=== PATIENT | female | born 1940 | race Caucasian/White ===

== ENCOUNTER 2017-05-11 13:16 | Emergency (ER) | payer MEDICARE ==
[~2017-05-11] VITALS: Ht 170.2 cm; Wt 86.2 kg
[~2017-05-11 13:16] MED LIST: HYDR-3714 PO; IBP800T PO; LISI20TA PO; TRM50T PO
[2017-05-11] MEDS ORDERED: LOSA100T28 (13:28)
[2017-05-11] MEDS ORDERED: ASPI-586 PO (13:28)
[2017-05-11] MEDS ORDERED: LIDOCAINE 1% INJ 20 ML (XYLOCAINE) VIAL INJ ONE (13:30)
[2017-05-11 13:44] LABS: BASOPHILS % (AUTO) 0 % (0-10); EOSINOPHILS # (AUTO) 0.2 10^3/uL (0.0-0.3); EOSINOPHILS % (AUTO) 3 % (0-10); LYMPHOCYTES # (AUTO) 1.4 X 10^3 (1.0-4.0); LYMPHOCYTES % (AUTO) 19 % (12-44); MEAN CORPUSCULAR HEMOGLOBIN 30 PG (25-34); MEAN CORPUSCULAR HGB CONC 33 G/DL (32-36); MEAN CORPUSCULAR VOLUME 91 FL (80-99); MEAN PLATELET VOLUME 10.3 FL (7.4-10.4); MONOCYTES # (AUTO) 0.8 X 10^3 (0.0-1.0); MONOCYTES % (AUTO) 11 % (0-12); NEUTROPHILS # (AUTO) 4.9 X 10^3 (1.8-7.8); NEUTROPHILS % (AUTO) 67 % (42-75); PLATELET COUNT 216 10^3/uL (130-400); RED BLOOD COUNT 4.74 10^6/uL (4.35-5.85); RED CELL DISTRIBUTION WIDTH 12.8 % (10.0-14.5); WHITE BLOOD COUNT 7.3 10^3/uL (4.3-11.0)
[2017-05-11] MEDS ORDERED: ONDANSETRON 4 MG/2 ML (SDV) Z0FRAN ONE (13:45)
[2017-05-11] MEDS ORDERED: ONDANSETRON 4 MG/2 ML (SDV) Z0FRAN IVP ONE (14:00)
[2017-05-11 14:01] LABS: ANION GAP 9 MMOL/L (5-14); BLOOD UREA NITROGEN 19 MG/DL (7-18); BUN/CREATININE RATIO 25 (0-20); CALCIUM 9.6 MG/DL (8.5-10.1); CARBON DIOXIDE 26 MMOL/L (21-32); CHLORIDE 106 MMOL/L (98-107); CREATININE SERUM 0.76 MG/DL (0.60-1.30); GFR ESTIMATED > 60; GLUCOSE 123 MG/DL (70-105); SODIUM 141 MMOL/L (135-145)
--- NOTE | 2017-05-11 14:32 | Diagnostic Imaging Report ---
PROCEDURE: CT head, face, and cervical spine without contrast. TECHNIQUE: Multiple contiguous axial images were obtained through the head, neck, and facial bones without the use of intravenous contrast. Sagittal and coronal reformations through the cervical spine and facial bones were also performed. INDICATION: Fall. FINDINGS: CT head: There is no intracranial hemorrhage, edema, or mass effect. There are periventricular and deep white matter hypodensities compatible with chronic microvascular ischemic changes. No hydrocephalus. No extra-axial fluid collection is seen. There is a mild scalp contusion in the frontal region in the midline. The calvarium appears unremarkable. CT face: There is mucosal thickening along the inferior aspect of the right maxillary sinus. The paranasal sinuses otherwise are clear with no hemorrhage or other forms of obliteration. The mastoid air cells and middle ear cavities are also well aerated. The orbital vernon are intact. The globes and retrobulbar soft tissues are symmetric. The zygomatic arches are intact. No fracture is seen. CT cervical spine: There is reversal of the lordotic curvature. The alignment of the posterior spinal line demonstrates minimal anterior translation of C3 over C4 and mild posterior translation of C5 over C6. There is also mild anterior translation of C7 over T1. This appears to be degenerative related to the associated significant disc degenerative changes with severe disc height loss at C4/5, C5/6, and C6/7 levels. At C6/7 anteriorly, there is osseous fusion seen. The facet joints demonstrate degenerative changes with satisfactory alignment. No widening of the predental space. Alignment of the lateral masses of C1 and C2 and the atlanto-occipital joints is satisfactory. There are posterior osteophytes seen at C4/5, C5/6, and C6/7 levels. No osseous significant spinal canal stenosis. There is multilevel foraminal narrowing seen, severe on the right side at C3/4 and at C5/6, and severe on the left at C2/3, C3/4, C5/6 (markedly severe), and C6/7 levels. No fracture is seen. IMPRESSION: CT head: No intracranial hemorrhage. CT maxillofacial: No fracture seen. CT cervical spine: Advanced degenerative changes with multilevel severe foraminal stenosis. No fracture seen. Dictated by: Dictated on workstation # [id number]
[2017-05-11 15:48] LABS: BILIRUBIN,URINE NEGATIVE (NEGATIVE); KETONES,URINE NEGATIVE (NEGATIVE); LEUKOCYTE ESTERASE ,URINE 1+ (NEGATIVE); NITRITE,URINE POSITIVE (NEGATIVE); PH,URINE 7 (5-9); PROTEIN,URINE 2+ (NEGATIVE); UROBILINOGEN,URINE NORMAL (NORMAL)
[2017-05-11 15:56] LABS: SQUAMOUS EPITHELIAL CELL,UR 0-2 /HPF
[2017-05-11] MEDS ORDERED: TETANUS,DIPTH,PERTUSS P/F (BOOSTRIX) 0.5 ML VIAL IM ONE (16:00)
--- NOTE | 2017-05-11 16:15 | ED Fall/Injury ---
General Chief Complaint: Trauma-Non Activation Stated Complaint: LAC BETWEEN EYES/FALL IN BR Nursing Triage Note: patient [place] the [place] at 1245. patient doesn't know cause of fall. denies LOC, neck pain. laceration noted to forehead. c-collar on per EMS Source: patient Exam Limitations: no limitations History of Present Illness Time seen by provider: 13:20 Initial Comments This delightful 76-year-old woman presents to the emergency room via EMS after having a fall at the bank. She was rushing to the restroom when she fell for unknown reasons. She denies any prodrome. She does not recall tripping or stumbling. She was feeling well prior to the fall. She struck her head on the toilet and actually broke the porcelain toilet tank. She is a large laceration between her eyes. There was no loss of consciousness. Patient is dazed and nauseated but alert and oriented. She denies any other injury. Allergies and Home Medications Allergies Coded Allergies: Codeine (Unverified Allergy, 03/17/11) Hydrocodone (Unverified Adverse Reaction, Severe, NAUSEA, 04/06/11) tramadol HCl (Unverified Adverse Reaction, Severe, NAUSEA, 04/06/11) Home Medications Aspirin 81 Mg Tablet.dr, 81 MG PO, (Reported) Cephalexin 500 Mg Capsule, 500 MG PO QID, #28 Prescribed by: YOHANA SOLIS on 05/11/17 1617 Losartan Potassium 100 Mg Tablet, #30 (Reported) Constitutional: no symptoms reported Eyes: No Symptoms Reported Ears, Nose, Mouth, Throat: see HPI Respiratory: no symptoms reported Cardiovascular: no symptoms reported Gastrointestinal: see HPI Genitourinary: no symptoms reported : No Musculoskeletal: see HPI Skin: see HPI Psychiatric/Neurological: See HPI Past Pcrgvwv-[id number]-Hjpxkc Hx Patient Social History Alcohol Use: Denies Use Recreational Drug Use: No Smoking Status: Never a Smoker Recent Foreign Travel: No Contact w/Someone Who Travel: No Recent Infectious Disease Expo: No Recent Hopitalizations: No Surgeries HX Surgeries: Yes Surgeries: Orthopedic Respiratory Hx Respiratory Disorders: No Cardiovascular Hx Cardiac Disorders: Yes (cardiomegaly) Cardiac Disorders: Hypertension Neurological Hx Neurological Disorders: Yes (Gagnon's palsy) Reproductive System Hx Reproductive Disorders: No Sexually Transmitted Disease: No Genitourinary Hx Genitourinary Disorders: No Gastrointestinal Hx Gastrointestinal Disorders: No Musculoskeletal Hx Musculoskeletal Disorders: Yes (RIGHT SHOULDER) Endocrine Hx Endocrine Disorders: No HEENT HX ENT Disorders: No Cancer Hx Cancer: No Psychosocial Hx Psychiatric Problems: No Integumentary HX Skin/Integumentary Disorder: No Blood Transfusions Hx Blood Disorders: No Physical Exam Vital Signs Vital Sign - Last 12Hours 05/11/17 13:26 Temp 98.4 Pulse 86 Resp 18 B/P (MAP) 176/107 Pulse Ox 95 Capillary Refill : Less Than 3 Seconds General Appearance: WD/WN, no apparent distress HEENT: PERRL/EOMI, other (large 3.5 cm laceration between the brows that is gaping) Neck: non-tender, supple, normal inspection, other (in c-collar) Cardiovascular: regular rate, rhythm, no edema, no murmur Respiratory: lungs clear, normal breath sounds, no respiratory distress, no accessory muscle use Gastrointestinal: normal bowel sounds, non tender, soft Extremities: no pedal edema, other (minor ecchymosis and tenderness to the third and fourth right fingers) 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, no motor/sensory deficits, alert, normal mood/affect, oriented x 3 Skin: normal color, warm/dry [place] Coma Score Best Eye Response: (4) Open Spontaneously Best Verbal Response: (5) Oriented Best Motor Response: (6) Obeys Commands [place] Total: 15 Laceration Repair : Wound Location: Face Wound Length (cm): 3.5 Wound's Depth, Shape: linear, sub Q Wound Explored: clean Irrigated w/ Saline (ccs): 150 Betadine Prep?: Yes Anesthesia: 1% Lidocaine Volume Anesthetic (ccs): 6 Suture: Prolene Suture Size: 5-0 Number of Sutures: 6 Sterile Dressing Applied?: No Progress/Results/Core Measures Results/Orders Lab Results Laboratory Tests Test 05/11/17 13:35 05/11/17 15:42 Range/Units White Blood Count 7.3 4.3-11.0 10^3/uL Red Blood Count 4.74 4.35-5.85 10^6/uL Hemoglobin 14.2 11.5-16.0 G/DL Hematocrit 43 35-52 % Mean Corpuscular Volume 91 80-99 FL Mean Corpuscular Hemoglobin 30 25-34 PG Mean Corpuscular Hemoglobin Concent 33 32-36 G/DL Red Cell Distribution Width 12.8 10.0-14.5 % Platelet Count 216 130-400 10^3/uL Mean Platelet Volume 10.3 7.4-10.4 FL Neutrophils (%) (Auto) 67 42-75 % Lymphocytes (%) (Auto) 19 12-44 % Monocytes (%) (Auto) 11 0-12 % Eosinophils (%) (Auto) 3 0-10 % Basophils (%) (Auto) 0 0-10 % Neutrophils # (Auto) 4.9 1.8-7.8 X 10^3 Lymphocytes # (Auto) 1.4 1.0-4.0 X 10^3 Monocytes # (Auto) 0.8 0.0-1.0 X 10^3 Eosinophils # (Auto) 0.2 0.0-0.3 10^3/uL Basophils # (Auto) 0.0 0.0-0.1 10^3/uL Sodium Level 141 135-145 MMOL/L Potassium Level 4.0 3.6-5.0 MMOL/L Chloride Level 106 98-107 MMOL/L Carbon Dioxide Level 26 21-32 MMOL/L Anion Gap 9 5-14 MMOL/L Blood Urea Nitrogen 19 H 7-18 MG/DL Creatinine 0.76 0.60-1.30 MG/DL Estimat Glomerular Filtration Rate > 60 BUN/Creatinine Ratio 25 H 0-20 Glucose Level 123 H 70-105 MG/DL Calcium Level 9.6 8.5-10.1 MG/DL Magnesium Level 2.0 1.8-2.4 MG/DL Urine Color YELLOW Urine Clarity CLEAR Urine pH 7 5-9 Urine Specific [place] 1.020 1.016-1.022 Urine Protein 2+ H NEGATIVE Urine Glucose (UA) NEGATIVE NEGATIVE Urine Ketones NEGATIVE NEGATIVE Urine Nitrite POSITIVE H NEGATIVE Urine Bilirubin NEGATIVE NEGATIVE Urine Urobilinogen NORMAL NORMAL MG/DL Urine Leukocyte Esterase 1+ H NEGATIVE Urine RBC (Auto) 2+ H NEGATIVE Urine RBC 2-5 H /HPF Urine WBC 2-5 /HPF Urine Squamous Epithelial Cells 0-2 /HPF Urine Crystals NONE /LPF Urine Bacteria LARGE H /HPF Urine Casts NONE /LPF Urine Mucus NEGATIVE /LPF Urine Culture Indicated YES Micro Results Microbiology 05/11/17 Urine Culture - Preliminary, Resulted Escherichia Coli My Orders Orders - YOHANA SCHMITZ MD Ct Head/Face/Cervical Wo (05/11/17 13:29) Saline Lock/Iv-Start (05/11/17 13:29) Saline Lock/Iv-Start (05/11/17 13:29) Ekg Tracing (05/11/17 13:29) Monitor-Rhythm Ecg Trace Only (05/11/17 13:29) Basic Metabolic Panel (05/11/17 13:29) Cbc With Automated Diff (05/11/17 13:29) Magnesium (05/11/17 13:29) Ua Culture If Indicated (05/11/17 13:29) Lidocaine 1% Injection (Xylocaine 1% Inj (05/11/17 13:30) Ondansetron Injection (Zofran Injectio (05/11/17 14:00) Ondansetron Injection (Zofran Injectio (05/11/17 13:45) Dipht,Pertuss(Acell),Tet Adult (Boostrix (05/11/17 16:00) Urine Culture (05/11/17 15:42) Medications Given in ED Vital Signs/I&O Vital Sign - Last 12Hours 05/11/17 05/11/17 13:26 16:29 Temp 98.4 Pulse 86 92 Resp 18 18 B/P (MAP) 176/107 Pulse Ox 95 95 Blood Pressure Mean: 130 Progress Note : Progress Note Patient did vomit once while in the CT scan. Zofran was administered. She was presumed to have concussion. No acute injuries were identified on imaging. The facial laceration was repaired with suture. Patient was found to have urinary tract infection. She was prescribed antibiotics and ultimately discharged to home. ECG Initial ECG Impression Date: May 11, 2017 Initial ECG Impression Time: 14:13 Initial ECG Rate: 90 Initial ECG Rhythm: Normal Sinus Comment Normal sinus rhythm with no ST elevation or depression. Probable LVH. No abnormal intervals. Diagnostic Imaging Diagonstic Imaging: CT Plain Films/CT/US/NM/MRI: facial bones, c-spine, head Comments NAME: DERRELL HANSEN MED REC#: [id number] PT STATUS: REG ER : 1940 PHYSICIAN: YOHANA SCHMITZ MD ADMIT DATE: 05/11/17/ER Draft Date of Exam:05/11/17 CT HEAD/FACE/CERVICAL WO PROCEDURE: CT head, face, and cervical spine without contrast. TECHNIQUE: Multiple contiguous axial images were obtained through the head, neck, and facial bones without the use of intravenous contrast. Sagittal and coronal reformations through the cervical spine and facial bones were also performed. INDICATION: Fall. FINDINGS: CT head: There is no intracranial hemorrhage, edema, or mass effect. There are periventricular and deep white matter hypodensities compatible with chronic microvascular ischemic changes. No hydrocephalus. No extra-axial fluid collection is seen. There is a mild scalp contusion in the frontal region in the midline. The calvarium appears unremarkable. CT face: There is mucosal thickening along the inferior aspect of the right maxillary sinus. The paranasal sinuses otherwise are clear with no hemorrhage or other forms of obliteration. The mastoid air cells and middle ear cavities are also well aerated. The orbital vernon are intact. The globes and retrobulbar soft tissues are symmetric. The zygomatic arches are intact. No fracture is seen. CT cervical spine: There is reversal of the lordotic curvature. The alignment of the posterior spinal line demonstrates minimal anterior translation of C3 over C4 and mild posterior translation of C5 over C6. There is also mild anterior translation of C7 over T1. This appears to be degenerative related to the associated significant disc degenerative changes with severe disc height loss at C4/5, C5/6, and C6/7 levels. At C6/7 anteriorly, there is osseous fusion seen. The facet joints demonstrate degenerative changes with satisfactory alignment. No widening of the predental space. Alignment of the lateral masses of C1 and C2 and the atlanto-occipital joints is satisfactory. There are posterior osteophytes seen at C4/5, C5/6, and C6/7 levels. No osseous significant spinal canal stenosis. There is multilevel foraminal narrowing seen, severe on the right side at C3/4 and at C5/6, and severe on the left at C2/3, C3/4, C5/6 (markedly severe), and C6/7 levels. No fracture is seen. IMPRESSION: CT head: No intracranial hemorrhage. CT maxillofacial: No fracture seen. CT cervical spine: Advanced degenerative changes with multilevel severe foraminal stenosis. No fracture seen. Dictated on workstation # [id number] Dict: 05/11/17 1416 Trans: 05/11/17 1432 [id number] Interpreted by: BOB MORALES MD Departure Impression Impression: Primary Impression: Facial laceration Qualified Codes: S01.81XA - Laceration without foreign body of other part of head, initial encounter Additional Impressions: Concussion without loss of consciousness Qualified Codes: S06.0X0A - Concussion without loss of consciousness, initial encounter Nausea and vomiting Qualified Codes: R11.2 - Nausea with vomiting, unspecified Urinary tract infection Qualified Codes: N39.0 - Urinary tract infection, site not specified Fall on same level Qualified Codes: W18.30XA - Fall on same level, unspecified, initial encounter Disposition: HOME, SELF-CARE Condition: Improved Departure-Patient Inst. Decision time for Depature: 16:00 Referrals: NO,LOCAL PHYSICIAN (PCP/Family) Primary Care Physician Patient Instructions: Concussion, Adult (DC), Laceration Repair With Stitches ( DC), Urinary Tract Infections in Adults Add. Discharge Instructions: Drink plenty of clear liquids. Complete your antibiotic as prescribed. Return to have your stitches removed in about 7 days. Watch your wound for signs of infection such as increasing redness, increasing swelling, puslike drainage, or fever. Return to care if you notice these symptoms. Follow-up with your primary care provider in a couple of days to review the results of your urine culture. This will ensure you are taking an antibiotic appropriate for the type of bladder infection you have. All discharge instructions reviewed with patient and/or family. Voiced understanding. Scripts Cephalexin (Keflex) 500 Mg Capsule 500 MG PO QID, #28 CAP Prov: YOHANA SCHMITZ MD 05/11/17 Copy Copies To 1: BELEN FAROOQ MD, JOSHUA T MD May 11, 2017 16:15
[2017-05-11] MEDS ORDERED: CEPH-507 PO (16:17)
[2017-05-11 16:29] VITALS: BP 174/102
== END 2017-05-11 16:28 | disposition home or self-care (01) ==
LOC: EDUNIT# 13:16 → ER 13:18
DX: S01.81XA Laceration without foreign body of other part of head, initial encounter (principal); S06.0X0A Concussion without loss of consciousness, initial encounter; N39.0 Urinary tract infection, site not specified; R11.2 Nausea with vomiting, unspecified; I10 Essential (primary) hypertension; Z79.82 Long term (current) use of aspirin; W01.198A Fall on same level from slipping, tripping and stumbling with subsequent striking against other object, initial encounter
CPT/HCPCS: 12013; 36415; 70450; 70486; 72125; 80048; 81000; 83735; 85025; 87088; 87186; 90715; 93005

== ENCOUNTER → 2017-06-07 | Outpatient (CLI) | payer MEDICARE, OTHER ==
[~2017-06-07] MED LIST changes: +ASPI-586 PO; +CEPH-507 PO; +LOSA100T28
== END ==
LOC: CARD 16:02
PROVIDERS: ATTEND Internal Medicine Cardiovascular Disease
DX: I07.1 Rheumatic tricuspid insufficiency; I51.7 Cardiomegaly; I34.0 Nonrheumatic mitral (valve) insufficiency; I10 Essential (primary) hypertension; R06.02 Shortness of breath
CPT/HCPCS: 93306

== ENCOUNTER → 2017-06-08 | Outpatient (CLI) | payer MEDICARE ==
[~2017-06-08] MED LIST changes: +REGADENOSON 0.4 MG/5 ML SYR (LEXISCAN) IV ONE
[2017-06-08] MEDS: CATHETER FLUSH 10 ML SYR IV PRN ×2 (07:42→08:45)
[2017-06-08 08:43] VITALS: BP 173/99
--- NOTE | 2017-06-09 10:26 | STRESS TEST ---
PROCEDURE PHYSICIAN: PRERNA ONTIVEROS DATE OF PROCEDURE: 06/08/2017 LEXISCAN MYOVIEW STRESS TEST REPORT: REFERRING PHYSICIAN: Dr. Cami Silver BASELINE HEART RATE: 83 BASELINE BLOOD PRESSURE: 173/100 BASELINE EKG: Sinus rhythm with no ischemic changes. IN SUMMARY: The patient was injected with 10.36 mCi of technetium 99 Myoview and the resting images were obtained. Then the patient received 0.4 mg of Lexiscan followed by 32.5 mCi of technetium 99 Myoview. Throughout the test, there were no EKG changes. The resting and stress images were reviewed and compared in the short axis, horizontal long axis, and vertical long axis views. Review of the images showed extracardiac attenuation with breast attenuation affecting the quality of the images. There is mild decreased uptake involving the mid to apical anterolateral and inferolateral wall. SSS is 10, SDS 6, TID value 0.76. On the gated images, the left ventricle appeared to be normal size with normal contractility. Calculated ejection fraction 61%. IN CONCLUSION: 1. Breast attenuation with questionable ischemia involving the mid to apical anterolateral and inferolateral wall. 2. Normal left ventricular size with normal contractility. Calculated ejection fraction 61%. 3. The patient tolerated Lexiscan well. Job ID: [id number] Dictated Date: 06/08/2017 15:09:52 Ruby Engineer Date: 06/09/2017 10:22:15 / gail
== END ==
LOC: CARD 07:29
PROVIDERS: ATTEND Internal Medicine Cardiovascular Disease
DX: I11.0 Hypertensive heart disease with heart failure (principal); R06.02 Shortness of breath; I51.7 Cardiomegaly
CPT/HCPCS: 78452; 93017

== ENCOUNTER 2017-07-07 08:01 | Day surgery (SDC) | payer MEDICARE, OTHER ==
[2017-07-07] VITALS (11 sets, daily range): BP systolic 153–184; BP diastolic 85–111
[~2017-07-07] VITALS: Ht 167.6 cm; Wt 86.2 kg
[~2017-07-07 08:01] MED LIST changes: -REGADENOSON 0.4 MG/5 ML SYR (LEXISCAN) IV ONE
[2017-07-07] MEDS ORDERED: NS IV 1000 ML 1,000 ML ONE (08:10)
[2017-07-07] MEDS ORDERED: HEParin (CATH LAB) 2,000 ML IV ONE (08:10)
[2017-07-07] MEDS ORDERED: NS IV 1000 ML 1,000 ML IV SCH ×3 (08:21→11:32)
[2017-07-07 08:51] LABS: MEAN PLATELET VOLUME 10.3 FL (7.4-10.4); RED BLOOD COUNT 5.03 10^6/uL (4.35-5.85); WHITE BLOOD COUNT 6.9 10^3/uL (4.3-11.0)
[2017-07-07 09:00] LABS: PROTHROMBIN TIME PATIENT 12.9 SEC (12.2-14.7)
[2017-07-07 09:10] LABS: ALANINE AMINOTRANSFERASE 23 U/L (0-55); ALBUMIN 4.1 GM/DL (3.2-4.5); ANION GAP 12 MMOL/L (5-14); ASPARTATE AMINO TRANSFERASE 21 U/L (5-34); BILIRUBIN,TOTAL 0.7 MG/DL (0.1-1.0); BLOOD UREA NITROGEN 17 MG/DL (7-18); BUN/CREATININE RATIO 21; CALCIUM 9.7 MG/DL (8.5-10.1); CARBON DIOXIDE 22 MMOL/L (21-32); CHLORIDE 105 MMOL/L (98-107); GFR ESTIMATED > 60; GLUCOSE 116 MG/DL (70-105); SODIUM 139 MMOL/L (135-145); TOTAL PROTEIN 7.1 GM/DL (6.4-8.2)
--- NOTE | 2017-07-07 09:27 | Diagnostic Imaging Report ---
Portable upright radiograph of the chest. INDICATION: Abnormal stress test. FINDINGS: There is a mild left basilar opacity favored to be atelectasis. The right lung is clear. The heart size is mildly enlarged. No effusion or pneumothorax. The mediastinum and maddi appear unremarkable. IMPRESSION: Cardiomegaly. Mild right basilar opacities favors to be atelectasis. Correlate clinically. Dictated by: Dictated on workstation # [id number]
[2017-07-07] MEDS ORDERED: MIDAZOLAM 5 MG/5 ML (VERSED) VIAL ONE (10:50)
[2017-07-07] MEDS ORDERED: fentaNYL INJECTION 100 MCG/2 ML AMP ONE (10:50)
--- NOTE | 2017-07-07 10:56 | Cardiac Procedure Note-CS/ASA ---
Pre-Procedure Note Pre-Op Procedure Note H&P Reviewed The H&P was reviewed, patient examined and no changes noted. Date H&P Reviewed: Jul 07, 2017 Time H&P Reviewed: 08:40 Conscious Sedation Pre-Proced Time Reviewed: 08:40 ASA Class: 3 Airway Mallampati Classification: ([place] appropriate class) I. II. III, IV Lungs Heart ASA score ASA 1: a normal healthy patient ASA 2: a patient with a mild systemic disease (mid diabetes, controlled hypertension, obesity x ASA 3: a patient with a severe systemic disease that limits activity (angina , COPD, prior Myocardial infarction) ASA 4: a patient with an incapacitating disease that is a constant threat to life (CHF, renal failure) ASA 5: a moribund patient not expected to survive 24 hrs. (ruptured aneurysm) ASA 6: a declared brain patient whose organs are being harvested. For emergent operations, add the letter E after the classification Grade 3 Sedation Plan: Analgesia, Amnesia, Plan communicated to team members, Discussed options with patient/fam, Discussed risks with patient/fam Note The patient is an appropriate candidate to undergo the planned procedure, sedation, and anesthesia. The patient immediately re-assessed prior to indication. PRERNA ONTIVEROS MD Jul 07, 2017 10:56
--- NOTE | 2017-07-07 11:36 | Cardiac Cath Report ---
Cardiac Cath Report Physician (s)/Music Professor (s) Physician PRERNA ONTIVEROS MD Pre-Procedure Diagnosis Pre-Procedure Diagnosis: coronary artery disease Post-Procedure Note Procedure Start Date: Jul 07, 2017 Procedure Start Time: 11:33 Name of Procedure: left heart catheterization Findings/Procedure Note PROCEDURE NOTE: After explaining the procedure to the patient, all pros and cons were explained, all questions were answered. The patient signed the consent and then she was placed on the cardiac catheterization laboratory. The patient was placed on the cardiac catheterization laboratory. Groin was prepped SL fashion local anesthesia was used. Sheath placed in the artery. Pratima right and left catheter were used to access the coronary system. Pigtail was used to access the left ventricular cavity, pressure was measured, no left ventricular gram was done At the end of the procedure the sheath was removed. Closure device was used Mynx. FINDINGS: Hemodynamics LV [ 158/13heart pressure of 13] Aorta [145/85 mean of 113 ] ANATOMY: Left Main [ normal] Left Anterior Descending [mild disease nonobstructive disease ] Left Circumflex [normal ] Right Coronory Artery [ normal] CONCLUSION: Mild coronary artery disease nonobstructive disease Normal left ventricular end-diastolic pressure DISCUSSION AND RECOMMENDATION: Patient has mild coronary artery disease nonobstructive disease, abnormal stress test is probably due to extracardiac attenuation Anesthesia Type: Conscious Sedation Estimated blood loss (mL): 25 ml Contrast Amount: 39 ml Total Radiation Dose: 53 mGy Post-Procedure Diagnosis Post-operative diagnosis: Coronary artery disease Chest pain nonspecific etiology Hypertension Hyperlipidemia PRERNA ONTIVEROS MD Jul 07, 2017 11:36
--- NOTE | 2017-07-07 11:37 | Discharge Inst-Post CATH ---
Discharge Inst-CATH Post Cardiac Cath D/C Inst Follow Up/Plan Appointment with Dr. Manuel's office in 2-4 weeks CARDIAC CATH DISCHARGE INSTRUCTIONS *Hold Metformin for 48 hours post heart cath. ACTIVITY * Go Home directly and rest. * Limit activity of the leg (or wrist if it was used) for 7 days including aerobics, swimming, jogging, bicycling, etc. * Restrict stair-climbing for 7 days if possible, if not, climb up with your non -cath leg, then bring together on the same step. * Avoid lifting, pushing, pulling or excessive movement of the affected extremity for 7 days. * Customary sexual activity may be resumed after 2 days-use caution not to use a position that strains or causes pain to the affected extremity. * No driving for 24 hours. * NO SMOKING. * Avoid straining for bowel movements for 7 days. * Gentle walking on level ground is allowed. * Returning to work will depend on the type of procedure and the results. Your doctor will discuss this with you. CALL YOUR DOCTOR FOR ANY OF THE FOLLOWING: *If bleeding from the puncture site occurs- Apply gentle pressure to site with clean cloth and call your doctor or EMS. * If a knot or lump forms under the skin, increases in size, or causes pain. * If bruising appears to be worsening or moving further down your leg instead of disappearing. * Temperature above 101 F. CARE OF YOUR GROIN INCISION; * Bruising or purple discoloration of the skin near the puncture site is common. * You may shower only, no bathtub bathing for 5 days. Be careful to avoid slipping as your leg may feel stiff. * If a closure device was used on your femoral artery, please see the attached guide regarding care of the device and your leg. * REMOVE the dressing from your groin the next day after your procedure in the shower. CARE OF YOUR WRIST INCISION; * Bruising or purple discoloration of the skin near the puncture site is common. * You may shower. * DO NOT submerge wrist. * Remove dressing in 24 hours. PRERNA MANUEL MD Jul 07, 2017 11:37
--- NOTE | 2017-07-07 11:39 | Clinic Account Progress/Dx ---
Clinic Account Progress/Dx DIAGNOSIS: Date Seen by Provider: Jul 07, 2017 Time Seen by Provider: 11:38 Diagnosis Coronary artery disease Chest pain nonspecific etiology Hypertension PRERNA ONTIVEROS MD Jul 07, 2017 11:39
[2017-07-07] MEDS ORDERED: PATIENT MAY USE OWN MEDS, ALL PO SCH (11:45)
== END 2017-07-07 16:20 | disposition home or self-care (01) ==
LOC: CATH 08:01 → SURG 11:56 → CATH 16:20
PROVIDERS: ATTEND Physician Assistant
DX: R79.89 Other specified abnormal findings of blood chemistry (principal); I25.10 Atherosclerotic heart disease of native coronary artery without angina pectoris; R06.02 Shortness of breath; I10 Essential (primary) hypertension; R94.39 Abnormal result of other cardiovascular function study; E78.5 Hyperlipidemia, unspecified; E66.9 Obesity, unspecified; Z68.30 Body mass index [BMI] 30.0-30.9, adult; Z79.899 Other long term (current) drug therapy
CPT/HCPCS: 36415; 71010; 80053; 85027; 85610; 85730; 87081; 93005; 93458

== ENCOUNTER → 2017-08-13 | Outpatient (CLI) | payer MEDICARE ==
[~2017-08-13] MED LIST changes: +RT-ALBUTEROL SULF 2.5 MG/3 ML PRE-MIX VIAL IH ONE
== END ==
LOC: RT 14:09
PROVIDERS: ATTEND Internal Medicine Cardiovascular Disease
DX: I10 Essential (primary) hypertension (principal); I34.0 Nonrheumatic mitral (valve) insufficiency; E66.9 Obesity, unspecified; R06.02 Shortness of breath
CPT/HCPCS: 94060; 94640; 94726; 94729

== ENCOUNTER 2020-01-15 00:29 | Emergency (ER) | payer MEDICARE ==
[~2020-01-15 00:29] MED LIST changes: -LOSA100T28; +LOSA100T57; -RT-ALBUTEROL SULF 2.5 MG/3 ML PRE-MIX VIAL IH ONE
[2020-01-15] MEDS ORDERED: LACTATED RINGERS 1,000 ML IV ONE ×2 (00:33→01:46)
[2020-01-15] MEDS ORDERED: PROMETHAZINE INJ 25 MG/ML (PHENERGAN) AMP IVP STA (00:33)
[2020-01-15 00:40] LABS: BASOPHILS % (AUTO) 0 % (0-10); EOSINOPHILS # (AUTO) 0.2 10^3/uL (0.0-0.3); EOSINOPHILS % (AUTO) 3 % (0-10); HEMATOCRIT 46 % (35-52); HEMOGLOBIN 14.9 G/DL (11.5-16.0); LYMPHOCYTES # (AUTO) 1.9 X 10^3 (1.0-4.0); LYMPHOCYTES % (AUTO) 23 % (12-44); MEAN CORPUSCULAR HEMOGLOBIN 30 PG (25-34); MEAN CORPUSCULAR HGB CONC 33 G/DL (32-36); MEAN CORPUSCULAR VOLUME 92 FL (80-99); MEAN PLATELET VOLUME 10.7 FL (7.4-10.4); MONOCYTES # (AUTO) 0.7 X 10^3 (0.0-1.0); MONOCYTES % (AUTO) 8 % (0-12); NEUTROPHILS # (AUTO) 5.4 X 10^3 (1.8-7.8); NEUTROPHILS % (AUTO) 66 % (42-75); PLATELET COUNT 252 10^3/uL (130-400); RED CELL DISTRIBUTION WIDTH 12.7 % (10.0-14.5); WHITE BLOOD COUNT 8.2 10^3/uL (4.3-11.0)
[2020-01-15] MEDS ORDERED: SCOPOLAMINE 1.5 MG (TRANSDERM-SCOP) PATCH TD ONE (00:45)
[2020-01-15] MEDS ORDERED: diphenhydrAMINE 50 MG/ML INJ (BENADRYL) IVP ONE ×2 (00:45→03:00)
[2020-01-15 00:52] LABS: INR 0.9 (0.8-1.4); PROTHROMBIN TIME PATIENT 12.6 SEC (12.2-14.7)
[2020-01-15 00:58] LABS: ALBUMIN 4.5 GM/DL (3.2-4.5); BILIRUBIN,TOTAL 0.4 MG/DL (0.1-1.0); CALCIUM 9.9 MG/DL (8.5-10.1); MAGNESIUM 2.2 MG/DL (1.6-2.4); POTASSIUM 3.8 MMOL/L (3.6-5.0); TOTAL PROTEIN 7.7 GM/DL (6.4-8.2)
[2020-01-15 01:49] LABS: BILIRUBIN,URINE NEGATIVE (NEGATIVE); CLARITY,URINE CLEAR; COLOR,URINE YELLOW; GLUCOSE, URINE (UA) TRACE (NEGATIVE); KETONES,URINE 1+ (NEGATIVE); LEUKOCYTE ESTERASE ,URINE NEGATIVE (NEGATIVE); NITRITE,URINE NEGATIVE (NEGATIVE); PROTEIN,URINE TRACE (NEGATIVE)
[2020-01-15 01:59] LABS: BACTERIA,URINE FEW /HPF; SQUAMOUS EPITHELIAL CELL,UR 0-2 /HPF
[2020-01-15] MEDS ORDERED: hydrALAZINE (APESOLINE) 20 MG/ML VIAL IV ONE (03:00)
--- NOTE | 2020-01-15 03:13 | NUR ---
PT ACCIDENTLY DISLODGED ORIGINAL IV SITE, 20 GA INSERTED INTO R AC
[2020-01-15] MEDS ORDERED: ONDANSETRON 4 MG/2 ML (SDV) Z0FRAN IVP ONE (03:15)
[2020-01-15] MEDS ORDERED: ONDA8TAB13 PO (04:25)
--- NOTE | 2020-01-15 04:25 | ED GI ---
General Chief Complaint: Abdominal/GI Problems Stated Complaint: VOMITING Source of Information: Patient History of Present Illness Date Seen by Provider: Jan 15, 2020 Time Seen by Provider: 00:30 Initial Comments PT ARRIVES VIA EMS FROM HOME STATES SHE WORKED AT [employer] TODAY ( PT IS A SENIOR CARE SPECIALIST) , GOT HOME AROUND 2029 AND WAS COMPLETELY FINE, AND STATES SHE HAS FELT FINE ALL DAY STATES AROUND 2099, SHE SUDDENLY BECAME VERY NAUSEATED AND BEGAN VOMITING NO DIARRHEA NO ABDOMINAL PAIN NO CHEST PAIN NO SHORTNESS OF BREATH NO FEVER C/O GENERALIZED WEAKNESS EMS GAVE PT ZOFRAN 4 MG IV PRIOR TO ARRIVAL, WITHOUT SIGNIFICANT IMPROVEMENT PT STATES SHE ATE SALMON FROM [employer] AROUND 1629 NO HISTORY OF GI PROBLEMS PCP: AISHWARYA Allergies and Home Medications Allergies Coded Allergies: codeine (Unverified Allergy, Unknown, 06/08/17) hydrocodone (Unverified Adverse Reaction, Severe, NAUSEA, 04/06/11) tramadol HCl (Unverified Adverse Reaction, Severe, NAUSEA, 04/06/11) Home Medications Cephalexin 500 Mg Capsule, 500 MG PO QID Prescribed by: YOHANA SOLIS on 05/11/17 1617 Ondansetron 8 Mg Tab.rapdis, 8 MG PO Q6H Prescribed by: ARIN GILMORE on 01/15/20 0425 Patient Home Medication List Home Medication List Reviewed: Yes Review of Systems Review of Systems Constitutional: see HPI; No chills, No diaphoresis, No dizziness, No fever; weakness EENTM: No Symptoms Reported Respiratory: No Symptoms Reported; Denies Cough, Denies Shortness of Air, Denies Wheezing Cardiovascular: No Symptoms Reported Gastrointestinal: See HPI; Denies Abdominal Pain, Denies Constipated, Denies Diarrhea; Nausea, Vomiting Genitourinary: No Symptoms Reported Musculoskeletal: no symptoms reported Skin: no symptoms reported Psychiatric/Neurological: No Symptoms Reported Endocrine: No Symptoms Reported Hematologic/Lymphatic: No Symptoms Reported Past [id number]-[id number] Hx Past Med/Social Hx: Reviewed and Corrections made Patient Social History Alcohol Use: Denies Use Recreational Drug Use: No Smoking Status: Never a Smoker Recent Foreign Travel: No Contact w/Someone Who Travel: No Recent Hopitalizations: No Immunizations Up To Date Date of Pneumonia Vaccine: Oct 07, 2016 Seasonal Allergies Seasonal Allergies: No Past Medical History Surgeries: Yes (HERNIA REPAIR; FOOT SURGERY; WRIST FX / REPAIR) Abdominal, Orthopedic Respiratory: No Cardiac: Yes Hypertension Neurological: No Reproductive Disorders: No Sexually Transmitted Disease: No Genitourinary: No Gastrointestinal: No Musculoskeletal: Yes (RIGHT SHOULDER PROBLEMS; WRIST FX/REPAIR; FOOT SURGERY) Fractures Endocrine: No HEENT: No Cancer: No Psychosocial: No Integumentary: No Blood Disorders: No Physical Exam Vital Signs Vital Signs - First Documented 01/15/20 04:50 Pulse 95 Resp 18 B/P (MAP) 157/92 Pulse Ox 100 O2 Delivery Room Air Capillary Refill : Height/Weight/BMI Height: 5'6.00" Weight: 190lbs. 0.0oz. 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, no motor/sensory deficits, alert, oriented x 3 Skin: normal color, warm/dry Procedures/Interventions Suture Size: 5-0 Progress/Results/Core Measures Results/Orders Lab Results Laboratory Tests Test 01/15/20 00:32 01/15/20 01:33 Range/Units White Blood Count 8.2 4.3-11.0 10^3/uL Red Blood Count 4.97 4.35-5.85 10^6/uL Hemoglobin 14.9 11.5-16.0 G/DL Hematocrit 46 35-52 % Mean Corpuscular Volume 92 80-99 FL Mean Corpuscular Hemoglobin 30 25-34 PG Mean Corpuscular Hemoglobin Concent 33 32-36 G/DL Red Cell Distribution Width 12.7 10.0-14.5 % Platelet Count 252 130-400 10^3/uL Mean Platelet Volume 10.7 H 7.4-10.4 FL Neutrophils (%) (Auto) 66 42-75 % Lymphocytes (%) (Auto) 23 12-44 % Monocytes (%) (Auto) 8 0-12 % Eosinophils (%) (Auto) 3 0-10 % Basophils (%) (Auto) 0 0-10 % Neutrophils # (Auto) 5.4 1.8-7.8 X 10^3 Lymphocytes # (Auto) 1.9 1.0-4.0 X 10^3 Monocytes # (Auto) 0.7 0.0-1.0 X 10^3 Eosinophils # (Auto) 0.2 0.0-0.3 10^3/uL Basophils # (Auto) 0.0 0.0-0.1 10^3/uL Prothrombin Time 12.6 12.2-14.7 SEC INR Comment 0.9 0.8-1.4 Activated Partial Thromboplast Time 26 24-35 SEC Sodium Level 140 135-145 MMOL/L Potassium Level 3.8 3.6-5.0 MMOL/L Chloride Level 104 98-107 MMOL/L Carbon Dioxide Level 21 21-32 MMOL/L Anion Gap 15 H 5-14 MMOL/L Blood Urea Nitrogen 28 H 7-18 MG/DL Creatinine 1.00 0.60-1.30 MG/DL Estimat Glomerular Filtration Rate 53 BUN/Creatinine Ratio 28 Glucose Level 157 H 70-105 MG/DL Calcium Level 9.9 8.5-10.1 MG/DL Corrected Calcium 9.5 8.5-10.1 MG/DL Magnesium Level 2.2 1.6-2.4 MG/DL Total Bilirubin 0.4 0.1-1.0 MG/DL Aspartate Amino Transf (AST/SGOT) 33 5-34 U/L Alanine Aminotransferase (ALT/SGPT) 40 0-55 U/L Alkaline Phosphatase 78 40-136 U/L Total Protein 7.7 6.4-8.2 GM/DL Albumin 4.5 3.2-4.5 GM/DL Amylase Level 107 25-125 U/L Lipase 86 H 8-78 U/L Urine Color YELLOW Urine Clarity CLEAR Urine pH 7.0 5-9 Urine Specific [place] 1.015 L 1.016-1.022 Urine Protein TRACE H NEGATIVE Urine Glucose (UA) TRACE H NEGATIVE Urine Ketones 1+ H NEGATIVE Urine Nitrite NEGATIVE NEGATIVE Urine Bilirubin NEGATIVE NEGATIVE Urine Urobilinogen 0.2 < = 1.0 MG/DL Urine Leukocyte Esterase NEGATIVE NEGATIVE Urine RBC (Auto) NEGATIVE NEGATIVE Urine RBC NONE /HPF Urine WBC NONE /HPF Urine Squamous Epithelial Cells 0-2 /HPF Urine Crystals NONE /LPF Urine Bacteria FEW H /HPF Urine Casts NONE /LPF Urine Mucus NEGATIVE /LPF Urine Culture Indicated NO Micro Results Microbiology 01/15/20 Influenza Types A,B Antigen (VAHID) - Final, Complete My Orders Orders - ARIN GILMORE DO Ed Iv/Invasive Line Start (01/15/20 00:33) Ekg Tracing (01/15/20 00:33) Monitor-Rhythm Ecg Trace Only (01/15/20 00:33) Amylase (01/15/20 00:33) Cbc With Automated Diff (01/15/20 00:33) Comprehensive Metabolic Panel (01/15/20 00:33) Lipase (01/15/20 00:33) Magnesium (01/15/20 00:33) Protime With Inr (01/15/20 00:33) Partial Thromboplastin Time (01/15/20 00:33) Ua Culture If Indicated (01/15/20 00:33) Influenza A And B Antigens (01/15/20 00:33) Ed Iv/Invasive Line Start (01/15/20 00:33) Lactated Ringers (Lr 1000 Ml Iv Solution (01/15/20 00:33) Promethazine Injection (Phenergan Injec (01/15/20 00:33) Diphenhydramine Injection (Benadryl Inje (01/15/20 00:45) Scopolamine Patch (Transderm-Scop Patch) (01/15/20 00:45) Chest 1 View, Ap/Pa Only (01/15/20 01:04) Ed Iv/Invasive Line Start (01/15/20 01:46) Lactated Ringers (Lr 1000 Ml Iv Solution (01/15/20 01:46) Diphenhydramine Injection (Benadryl Inje (01/15/20 03:00) Hydralazine Injection (Apresoline Inject (01/15/20 03:00) Ondansetron Injection (Zofran Injectio (01/15/20 03:15) Rx-Ondansetron Po (Rx-Zofran Po) (01/15/20 04:33) Medications Given in ED Vital Signs/I&O 01/15/20 04:50 Pulse 95 Resp 18 B/P (MAP) 157/92 Pulse Ox 100 O2 Delivery Room Air Progress Progress Note : Progress Note GIVEN ADDITIONAL MEDICATIONS FOR NAUSEA, WELL IV FLUIDS AND EVENTUALLY SYMPTOMS RESOLVED. PT VOIDED SEVERAL TIMES DURING ER STAY NO DIARRHEA AT ANY TIME NO ABDOMINAL PAIN AT ANY TIME PT ABLE TO TOLERATE FLUIDS AND IS ABLE TO STAND ON HER OWN AND WALK PRIOR TO DISMISSAL Initial ECG Impression Date: Jan 15, 2020 Initial ECG Impression Time: 00:40 Initial ECG Rate: 88 Initial ECG Rhythm: Normal Sinus Initial ECG Impression: Nonspecific Changes Diagnostic Imaging Comments CXR--NO ACUTE PROCESS, PENDING RADIOLOGIST REVIEW Reviewed: Reviewed by Me Departure Impression Primary Impression: Nausea and vomiting Additional Impressions: HTN (hypertension) POSSIBLE FOOD RELATED ILLNESS Disposition: HOME, SELF-CARE Condition: Improved Departure-Patient Inst. Referrals: PJ HENDRIX DO (PCP) Primary Care Physician NINO DOS SANTOS (Family) Primary Care Physician Patient Instructions: High Blood Pressure (DC), Nausea and Vomiting, Adult (DC), Food Poisoning (DC) Add. Discharge Instructions: HOME, REST CLEAR LIQUIDS--WATER, BROTH, JELLO, GATORADE, POPSICLES, CLEAR JUICES TOMORROW IF YOU ARE BETTER, ADD BRATS DIET TO CLEAR LIQUIDS--BANANAS, RICE, APPLESAUCE, TOAST, SALTINES FOLLOW UP WITH YOUR DR TOMORROW IF NO BETTER, RETURN TO ER IF WORSE All discharge instructions reviewed with patient and/or family. Voiced understanding. Scripts Ondansetron (Ondansetron Odt) 8 Mg Tab.rapdis 8 MG PO Q6H for Nausea/Vomiting, #10 TAB Prov: ARIN GILMORE DO 01/15/20 ARIN GILMORE DO Jan 15, 2020 04:25
[2020-01-15] MEDS ORDERED: RX-ONDANSETRON 4 MG ODT (ZOFRAN) PPK #4 PO STA (04:33)
[2020-01-15 04:50] VITALS: BP 157/92
--- NOTE | 2020-01-15 07:18 | Diagnostic Imaging Report ---
EXAMINATION: Chest radiograph, portable AP view. DATE: 01/15/2020 1:38 AM hours. INDICATION: 79-year-old female, cough and congestion. COMPARISON: July 07, 2017. FINDINGS: Stable overall appearance of the cardiomediastinal silhouette. There is no identified pneumothorax. There is no large pleural effusion. There is no identified interval focal airspace consolidation. IMPRESSION: 1. No identified acute cardiopulmonary abnormality. Dictated by: Dictated on workstation # [id number]
== END 2020-01-15 04:50 | disposition home or self-care (01) ==
LOC: EDUNIT# 00:29 → ER 00:30
DX: R11.2 Nausea with vomiting, unspecified (principal); I10 Essential (primary) hypertension; Z88.5 Allergy status to narcotic agent
CPT/HCPCS: 36415; 71045; 80053; 81000; 82150; 83690; 83735; 85025; 85610; 85730; 87804; 93005; 93041